=== PATIENT | female | born 1970 | race Caucasian/White ===

== ENCOUNTER 2025-05-14 10:02 | Inpatient (IN) | payer MEDICAID ==
--- NOTE | 2025-05-08 15:47 | ELECTROCARDIOGRAPH REPORT ---
[facility] Test Date: 2025-05-08 Test Time: 15:44:37 Pat Name: MOMO MEYER Department: PRE/OP CARDIOLOGY [id number] Room: Gender: F [employer] Advanced Operator Maintainer: ESTRADA : 1970 Requested By: TYSON BAIRD Order Number: [id number] Reading MD: Dr. Jose Poole Measurements Intervals [place] Rate: 54 P: 60 AK: 95 QRS: 88 QRSD: 105 T: 77 QT: 459 QTc: 435 Interpretive Statements Sinus bradycardia Short AK interval Electronically Signed On 05-09-2025 6:56:[address] Jose Poole Please click the below link to view image of tracing.
[2025-05-08 15:53] LABS: MEAN PLATELET VOLUME 8.8 FL (7.4-10.4); PRE OP HEMATOCRIT 44.6 % (35.0-45.0); PRE OP HEMOGLOBIN 15.1 g/dL (12.0-16.0); PRE OP PLATELET COUNT 294 X10'3 (140-440); PRE OP WHITE BLOOD COUNT 6.5 10'3 (4.8-10.8); RED CELL DISTRIBUTION WIDTH 13.1 % (11.5-14.5)
[2025-05-08 16:05] LABS: CREATININE 0.74 MG/DL (0.40-0.90); PRE OP ALT 26 U/L (30-65); PRE OP ANION GAP 6 (8-16); PRE OP AST 18 U/L (10-37); PRE OP BILIRUB, TOTAL 0.4 MG/DL (0.0-1.0); PRE OP GLUCOSE 104 MG/DL (70-104); PRE OP POTASSIUM 3.9 MMOL/L (3.4-5.1); PRE OP SODIUM 140 MMOL/L (135-145); TOTAL CARBON DIOXIDE 30.7 MMOL/L (24-32); eGFR 81 ML/MIN
--- NOTE | 2025-05-08 16:07 | RADIOLOGY REPORT ---
CLINICAL HISTORY: PREOP TECHNIQUE: Chest 2 views of the chest were obtained. COMPARISON: None FINDINGS: The heart size and pulmonary vasculature are normal. The lungs are clear. No pleural effusion is present. IMPRESSION: NO ACUTE CARDIOPULMONARY PROCESS.
[~2025-05-14] VITALS: Ht 162.6 cm; Wt 69.8 kg
[2025-05-14] VITALS (19 sets, daily range): BP systolic 106–152; BP diastolic 60–124; PULSE 51–86; RESP 14–19; TEMP 97.8–98.2; O2SAT 91–100
[2025-05-14] MEDS: ceFAZolin 2gm/dext,iso 50mL 50 ML IV ONE (05:30)
[2025-05-14] MEDS: potassium cl 20mEq in 1/2 NS 1,000 ML IV SCH (07:40)
[2025-05-14] MEDS: cholecalciferol (vitamin D3) 1,000 unit (25mcg) tablet PO SCH (08:00)
[2025-05-14] MEDS: psyllium seed 5.8 gm packet (sugar-free) PO SCH (08:00)
[~2025-05-14 10:02] MED LIST: ACET-1025 PO; CHOL500061 PO; FLUT16SP BOTHNARES; OMEG-5 PO; OMEGA-3/DHA/EPA/FISH OIL 1 EACH CAPSULE.DR PO SCH; PCA WASTE DOCUMENTATION 1 MG ML MC SCH; PSYL1000 PO; bisacodyl 10mg suppository rectal RC PRN; fluticasone nasal spray 16GM bottle NS PRN; magnesium hydroxide 30ml (MOM) UD suspension PO PRN; ondansetron/PF 4mg/2ml inj IV PRN; oxyCODONE IR 5mg (immed. release) tablet PO PRN
[2025-05-14] MEDS: ringers solution, lacted 1,000 ML IV SCH ×2 (12:13→18:45)
[2025-05-14] MEDS: vancomycin/NS 1 GM ADD-VANTAGE 250 ML IV ONE (12:13)
[2025-05-14] MEDS: albuterol 2.5 MG/3 ML nebule NEB ONE (12:17)
[2025-05-14] MEDS ORDERED: ROPIVAcaine 0.5% (5mg/ml) 30ml vial ONE ×2 (14:05→17:18)
[2025-05-14] MEDS ORDERED: MIDAZolam 1 MG/ML 5ML VIAL ONE ×2 (15:31→17:16)
[2025-05-14] MEDS ORDERED: fentaNYL/PF 50MCG/1 ML 2ML syringe ONE (15:31)
[2025-05-14] MEDS: ROPIVAcaine 0.5% (5mg/ml) 30ml vial IJ ONE ×2 (16:17→17:06)
[2025-05-14] MEDS ORDERED: hydrALAZINE 20mg/ml inj. IV PRN (16:55)
[2025-05-14] MEDS ORDERED: fentaNYL/PF 50MCG/1 ML 2ML syringe IV PRN ×2 (16:55)
[2025-05-14] MEDS ORDERED: acetaminophen 1,000mg/100ml IV 100 ML IV PRN (16:55)
[2025-05-14] MEDS ORDERED: morphine 4 MG/ML inj SYRINge IV PRN (16:55)
[2025-05-14] MEDS ORDERED: ondansetron/PF 4mg/2ml inj IV PRN (16:55)
[2025-05-14] MEDS ORDERED: labetalol 20mg/4ml (5mg/ml) syringe IV PRN (16:55)
[2025-05-14] MEDS ORDERED: propofol inj 20 ML IV ONE ×2 (17:18)
--- NOTE | 2025-05-14 17:37 | OPERATIVE REPORT ---
Operative Report Operative Report OPERATIVE REPORT [facility] [address] [place] [address] Date of service: May 14, 2025 PREOPERATIVE DIAGNOSIS M17..16 Unilateral primary osteoarthritis, left knee POSTOPERATIVE DIAGNOSIS M1..16 Unilateral primary osteoarthritis, left knee Operation Performed 53428 Total Knee [place]thro[place] [address] Computer Assisted Navigation Musculoskeletal - Imageless 61880 Remote therapeutic monitoring; device supply with scheduled recordings every 30 days. Procedure: Computer-Assisted, Robotically-Assisted, Left Total Knee Arthroplasty. Surgeon: Dr. Jovany Rahman Partner Management Consultant: Torri Win Pa-C Anesthesiologist: Dr. Wheat Anesthesia: Spinal Anesthetic Indications: 55-Year-Old Female Who Has Chronic Osteoarthritis Of The Left Knee With Severe Pain And Limitation Of Activities Despite Extensive Non-Operative Management. This Patient Has Had Extensive Conservative Treatment Of Knee Joint Arthritis, Including Rest, External Joint Support, Anti-Inflammatory Medications, Physical Therapy, And Corticosteroid Injection. Physical Therapy Has Been Provided, Along With A Home Exercise Program Prior To Making The Decision To Proceed With Surgical Treatment. This Therapeutic Intervention Did Not Provide Any Substantial Relief Of Symptoms Or Improvement In Function. The Patient Has Been Utilizing A Cane, Set Of Crutches, Or Walker, For More Than 3 Months Prior To Deciding To Proceed With Surgery. These Interventions Have Not Provided Sufficient Relief Of Pain To Allow Improvement In Function. The Patient Has Utilized Non-Steroidal Anti-Inflammatory Medications For Relief Of Pain Over An Extended Period Of Time (More Than 2 Months), And Has Not Experienced Sufficient Improvement In Symptoms. Despite These Treatments, This Patient Has Continued Difficulties With Pain And Limited Function. They Are Unable To Walk Long Distances, Do Vigorous Activities, Sit Or Sleep Comfortably. Total Knee Replacement Is The Next Reasonable Step In Terms Of Treatment. Indications For Partner Management Consultant Surgeon: A Second Set Of Skilled Hands With Specific Orthopedic Knowledge Of The Surgical Procedure And Orthopedic Surgical Techniques Was Necessary To Accomplish This Operation Successfully, And With The Least Amount Of Morbidity For The Patient. This Facilitated Operative Exposure, Manipulation And Handling Of Tissues, Placement Of Any Implants, And Accomplishment Of Wound Closure. Findings: There Was Indeed A Very Severely Arthritic Knee, With Loss Of Cartilage, Exposed Bone, And Marginal Osteophytes. The Lateral Compartment Was Particularly Bad. A 1 Degree Valgus Deformity And Total Degrees Hyperextension Deformity Were Measured Preoperatively. Post Operative Alignment Was 2 Varus, And 1 Degree Extension. Complications: None Estimated Blood Loss: 150 Ml Implants: A Estefania Her Original Surgery Was Total Knee System Was Utilized With A Size Six Left Cemented Femoral Component, And A Size D Left Cemented Tibial Sm art Stem. A 10 Mm Medial Congruent Left Tibial Insert Was Utilized. The TRA[employer]IQ Robotically Assisted Total Knee Arthroplasty System And Computer Was Utilized. Procedure: The Risks, Benefits, Expected Results, And Possible Complications Of The Planned Procedure Had Been Explained To The Patient And Informed Consent Obtained. The Patient Was Taken To The Operating Room And Underwent A General Anesthetic. The Patient Was Placed In The Supine Position On The Operating Table, And The Left Leg Was Prepped And Draped In The Usual Fashion. A Timeout Was Taken Prior To Surgery, Confirming Patient Identification, Operative Side Operative Site, Planned Procedure, Administration Of Pre-Operative Antibiotics, Site Marking, And Presence Of All Necessary Implants And Instruments, X-Rays And Equipment. A Standard Anterior, Slightly Medial Approach Was Performed With A Medial Parapatellar Arthrotomy, And A Vmo Split. Time Was Then Spent Removing Excessive Synovial Tissue And Exposing The Medial And Lateral Gutters, As Well As Moving The Anterior Sections Of The Residual Menisci. The Patella Was Mobilized To Be Able To Be Retracted Laterally. This Gave Exposure Of The Anterior Aspect Of The Knee. Attention Was Then Directed To The Patella. The Patella Was In Excellent Condition So We Decided Not To Resurface The Patella. Infrared Arrays Were Then Placed On The Femur And The Tibia. Utilizing The TRAFFIQ Computer System, The Hip, Knee, And Ankle Were Landmarked In Usual Fashion. The Initial Alignment Measurements Were Then Taken Confirming The Above Listed Deformity. Surgical Planning Was Then Carried Out On The Computer, Confirming Alignment Of Components, Sizing, And Gap Balancing. Appropriate Soft Tissue Releases Were Performed. The Robot Was Then Utilized To Make The Distal Femoral Cut. The Femur Was Prepared In 4 Degrees Of Flexion And Neutral Coronal Alignment. The Distal Femoral 4 In 1 Block Was Placed With The Robot, And The Remaining Femoral Cuts Also Performed. The Robot Was Then Utilized To Cut The Proximal Tibia In 5 Degrees Of Flexion And Neutral Coronal Alignment. The Computer Was Then Utilized To Check Longitudinal Alignment And Soft Tissue Balance, And This Confirmed Excellent Alignment. Next The Dynamic Balancing Block Was Utilized To Check And Adjust Soft Tissue Balancing. The Trial Implant Was Sized And Properly Rotated, And The Peg Drilling Performed. Final Check Of Alignment And Balancing Was Then Carried Out With Trials In Place, As Well As Final Removal And Cleaning Up Of Soft Tissue Such As Meniscal Remnants And Osteophytes. Cement Was Then Mixed; 2 Batches Were Utilized, Mixed Together, For The Tibia, The Femur And The Patella. The Cut Surface Of The Tibia Was Thoroughly Lavaged With The Pulsating Lavage And Then Dried. The Tibia Was Impacted With The Ma llet, Seating It Quite Nicely In Its Proper Rotational Alignment. Excess Cement Was Removed From Around The Margins. The Femoral Cuts Were Cleaned With A Pulsating Lavage And Then Dried With The Lap Sponges, And The Femur Was Impacted Into Position With A Mallet. Excess Cement Was Removed Around The Margins Of The Components As The Cement Cured. Pressure Was Held On The Femoral Component And Tibia By Placing A Spacer And Bringing The Leg To Full Extension And Applying Axial And Hyperextension Force. Upon Complete Hardening Of All Cement, The Knee Was Inspected And Excess Cement Removed. We Lavaged The Knee To Wash Out Any Debris And Checked To Make Sure We Had No Impinging Cement. The Trial Spacer Was Replaced And Overall Alignment Checked With Computer, Ensuring We Had Full Extension Of The Knee, And Appropriate Medial And Lateral Soft Tissue Balance, As Well As Flexion And Extension Balance. The Wound Was Irrigated Thoroughly One More Time And Then Dried With Lap Sponges. The Final Tibial Spacer Was Impacted And Locked Into The Locking Mechanism Without Difficulty. I Lavaged The Knee To Wash Out Any Debris. The Tibial Trial Spacer Was Replaced And Overall Alignment Checked With Computer, Ensuring We Had Full Extension Of The Knee, And Appropriate Medial And Lateral Soft Tissue Balance, As Well As Flexion And Extension Balance. The Wound Was Irrigated Thoroughly One More Time And Then Dried With Lap Sponges. The Final Tibial Spacer Was Impacted And Locked Into The Locking Mechanism Without Difficulty. The Retinacular Incision Was Closed With #2 Quill Suture, And Subcutaneous Tissue Closed With #2-0 Vicryl Suture. Skin Was Closed With 4-0 Monocryl Suture. A Sterile Dressing Was Applied, And The Patient Was Returned To The Recovery Room In Satisfactory Condition. In The Recovery Area The Remote Monitoring Station Was Dispensed To The Patient And Family. Instructions Were Given For Its Usage And Digital Media Producer Once The Patient Got Home. We Also Confirmed The Patient Had Installed The My Mobility Software, And We Ensured That The Patient Was Enrolled In Appropriate Software Platform From Our End. Remote Monitoring Was Initiated At The Preoperative Appointment And The Devices Used For Remote Monitoring Implanted And Dispensed Today. With the 1st Electronically Signed by: Jovany Rahman MD Doctor, Orthopedic Surgery Signed on: 05/14/2025 05:37 PM JOVANY RAHMAN MD May 14, 2025 17:37
[2025-05-14] MEDS: oxyCODONE IR 5mg (immed. release) tablet PO PRN (19:55)
[2025-05-14] MEDS: HYDROmorphone inj. 0.5 MG/0.5 ML DISP.SYRIN IV PRN (23:09)
[2025-05-14] MEDS: OMEGA-3/DHA/EPA/FISH OIL 1 EACH CAPSULE.DR PO SCH (23:09)
[2025-05-14] MEDS: ceFAZolin 1GM/D5W- ADD-VANTAGE 50 ML IV SCH (23:10)
[2025-05-14] MEDS: OMEGA-3/DHA/EPA/FISH OIL 1 EACH CAPSULE.DR PO ONE (23:20)
[2025-05-15] MEDS: vancomycin/NS 1 GM ADD-VANTAGE 250 ML IV SCH (00:56)
[2025-05-15 02:00] VITALS: BP 119/63; PULSE 70; TEMP 98.2; O2SAT 98
[2025-05-15 05:43] VITALS: BP 100/57; PULSE 66; RESP 12; TEMP 97.6; O2SAT 96
[2025-05-15 06:07] LABS: MEAN PLATELET VOLUME 8.6 FL (7.4-10.4); RED CELL DISTRIBUTION WIDTH 12.8 % (11.5-14.5)
[2025-05-15 06:27] LABS: TOTAL CARBON DIOXIDE 27.7 MMOL/L (24-32)
--- NOTE | 2025-05-15 06:59 | DISCHARGE SUMMARY ---
Discharge Summary Ortho [facility] ~ Discharge Summary Discharge Date: May 15, 2025 *Problems/Diagnosis: (1) S/P total knee arthroplasty Status: Acute Admission Diagnosis: osteoarthritis Admission Diagnosis comment: see above Discharge Diagnosis\Comment: see above Operations\Procedures see above Consultants: none Complications: none Condition on DC: Stable Discharge Summary: Patient was admitted on date of surgery. Surgery went without complications. Patient had an uneventful overnight stay. Pain well controlled. Dressing clean and dry. Neurovasculary intact. Patient is stable for discharge home pending PT clearance. Total Time Spent on D/C: Up to 30 Minutes Medications Home Meds: Home Medications Active Reported Psyllium Husk 100 % Powder 1 Pkt PO DAILY Fish Oil 1,000 Mg Softgel (Docosahexanoic Acid/Epa) 300 Mg-1,000 Mg Capsule 2 Cap PO BIDPC WITH MEALS Fluticasone Propionate 50 Mcg/Actuation [place].susp 1-2 Sprays BOTHNARES DAILY PRN 30 Days Tylenol Extra Strength (Acetaminophen) 500 Mg Tablet 2 Tab PO Q6H PRN PRN 3 Days Vitamin D3 (Cholecalciferol (Vitamin D3)) 125 Mcg (5000 Unit) Tab.rapdis 1 Tab PO DAILY 30 Days Supervising Physician Supervising Physician: Dr. Jovany Rahman Problem Qualifiers (1) S/P total knee arthroplasty: Qualified Codes: Z96.652 - Presence of left artificial knee joint PEPITO ESCALANTE May 15, 2025 06:59
[2025-05-15] MEDS: ceFAZolin 1GM/D5W- ADD-VANTAGE 50 ML IV ONE (08:15)
[2025-05-15 14:11] VITALS: RESP 17
== END 2025-05-15 16:09 | disposition home or self-care (01) | DRG 326 ==
LOC: PAS IN 10:02 → ORTHO 4S 18:50
PROVIDERS: ADMIT Orthopaedic Surgery; ATTEND Orthopaedic Surgery
PROC: 8E0YXBZ Computer Assisted Procedure of Lower Extremity (ICD-10-PCS; 2025-05-14)
PROC: 8E0Y0CZ Robotic Assisted Procedure of Lower Extremity, Open Approach (ICD-10-PCS; 2025-05-14)
PROC: 0SRD0J9 Replacement of Left Knee Joint with Synthetic Substitute, Cemented, Open Approach (ICD-10-PCS; principal; 2025-05-14 15:23)
DX: M17.12 Unilateral primary osteoarthritis, left knee (principal); F32.A Depression, unspecified; M21.062 Valgus deformity, not elsewhere classified, left knee
CPT/HCPCS: 36415; 71046; 80051; 80053; 82948; 85025; 87081; 93005; 94640; 94760; 97110; 97116; 97162; A4215; A6446; A6449; A7000; C1713; C1776; C9250; G0378; J0690; J1171; J2250; J2312; J2405; J2704; J2795; J3010; J3373; J3480; J7120; Q0163